=== PATIENT | male | born 1945 | race Hispanic/Latino ===

== ENCOUNTER 2023-10-09 09:49 | Outpatient (CLI) | payer MEDICARE | END 2023-10-09 09:50 | disposition home or self-care (01) | LOC: CSHWCC 09:49 | PROVIDERS: ATTEND Nurse Practitioner Family | DX: I83.013 Varicose veins of right lower extremity with ulcer of ankle (principal); I83.023 Varicose veins of left lower extremity with ulcer of ankle; E11.622 Type 2 diabetes mellitus with other skin ulcer; L97.329 Non-pressure chronic ulcer of left ankle with unspecified severity; L97.319 Non-pressure chronic ulcer of right ankle with unspecified severity; D45 Polycythemia vera | CPT/HCPCS: 11042 ==

== ENCOUNTER 2023-10-27 09:45 | Outpatient (CLI) | payer MEDICARE | END 2023-10-27 09:46 | disposition home or self-care (01) | LOC: CSHWCC 09:45 | PROVIDERS: ATTEND Family Medicine | DX: I83.013 Varicose veins of right lower extremity with ulcer of ankle (principal); I83.023 Varicose veins of left lower extremity with ulcer of ankle; E11.622 Type 2 diabetes mellitus with other skin ulcer; D45 Polycythemia vera; L97.322 Non-pressure chronic ulcer of left ankle with fat layer exposed; L97.312 Non-pressure chronic ulcer of right ankle with fat layer exposed | CPT/HCPCS: 97597 ==

== ENCOUNTER 2023-11-11 10:32 | Outpatient (CLI) | payer MEDICARE | END 2023-11-11 10:33 | disposition home or self-care (01) | LOC: CSHWCC 10:32 | PROVIDERS: ATTEND Nurse Practitioner Family | DX: I83.013 Varicose veins of right lower extremity with ulcer of ankle (principal); I83.023 Varicose veins of left lower extremity with ulcer of ankle; E11.622 Type 2 diabetes mellitus with other skin ulcer; D45 Polycythemia vera; L97.322 Non-pressure chronic ulcer of left ankle with fat layer exposed; L97.312 Non-pressure chronic ulcer of right ankle with fat layer exposed | CPT/HCPCS: 11042 ==

== ENCOUNTER 2023-11-25 12:49 | Outpatient (CLI) | payer MEDICARE | END 2023-11-25 12:50 | disposition home or self-care (01) | LOC: CSHWCC 12:49 | PROVIDERS: ATTEND Nurse Practitioner Family | DX: I83.013 Varicose veins of right lower extremity with ulcer of ankle (principal); I83.023 Varicose veins of left lower extremity with ulcer of ankle; E11.622 Type 2 diabetes mellitus with other skin ulcer; L97.322 Non-pressure chronic ulcer of left ankle with fat layer exposed; L97.312 Non-pressure chronic ulcer of right ankle with fat layer exposed; D45 Polycythemia vera | CPT/HCPCS: 11042 ==

== ENCOUNTER 2023-12-02 13:42 | Outpatient (CLI) | payer MEDICARE | END 2023-12-02 13:43 | disposition home or self-care (01) | LOC: CSHWCC 13:42 | PROVIDERS: ATTEND Nurse Practitioner Family | DX: I83.013 Varicose veins of right lower extremity with ulcer of ankle (principal); I83.023 Varicose veins of left lower extremity with ulcer of ankle; E11.622 Type 2 diabetes mellitus with other skin ulcer; L97.322 Non-pressure chronic ulcer of left ankle with fat layer exposed; L97.312 Non-pressure chronic ulcer of right ankle with fat layer exposed; D45 Polycythemia vera | CPT/HCPCS: 11042 ==

== ENCOUNTER 2023-12-10 12:03 | Outpatient (CLI) | payer MEDICARE | END 2023-12-10 12:04 | disposition home or self-care (01) | LOC: CSHWCC 12:03 | PROVIDERS: ATTEND Nurse Practitioner Family | DX: I83.013 Varicose veins of right lower extremity with ulcer of ankle (principal); I83.023 Varicose veins of left lower extremity with ulcer of ankle; E11.622 Type 2 diabetes mellitus with other skin ulcer; L97.322 Non-pressure chronic ulcer of left ankle with fat layer exposed; L97.312 Non-pressure chronic ulcer of right ankle with fat layer exposed; D45 Polycythemia vera | CPT/HCPCS: 11042 ==

== ENCOUNTER 2023-12-17 09:46 | Outpatient (CLI) | payer MEDICARE | END 2023-12-17 09:47 | disposition home or self-care (01) | LOC: CSHWCC 09:46 | PROVIDERS: ATTEND Nurse Practitioner Family | DX: I83.013 Varicose veins of right lower extremity with ulcer of ankle (principal); I83.023 Varicose veins of left lower extremity with ulcer of ankle; E11.622 Type 2 diabetes mellitus with other skin ulcer; L97.322 Non-pressure chronic ulcer of left ankle with fat layer exposed; L97.312 Non-pressure chronic ulcer of right ankle with fat layer exposed; D45 Polycythemia vera | CPT/HCPCS: 11042 ==

== ENCOUNTER 2023-12-24 12:25 | Outpatient (CLI) | payer MEDICARE | END 2023-12-24 12:26 | disposition home or self-care (01) | LOC: CSHWCC 12:25 | PROVIDERS: ATTEND Nurse Practitioner Family | DX: I83.013 Varicose veins of right lower extremity with ulcer of ankle (principal); I83.023 Varicose veins of left lower extremity with ulcer of ankle; E11.622 Type 2 diabetes mellitus with other skin ulcer; L97.322 Non-pressure chronic ulcer of left ankle with fat layer exposed; L97.312 Non-pressure chronic ulcer of right ankle with fat layer exposed; D45 Polycythemia vera | CPT/HCPCS: 11042 ==

== ENCOUNTER 2023-12-31 15:24 | Outpatient (CLI) | payer MEDICARE | END 2023-12-31 15:25 | disposition home or self-care (01) | LOC: CSHWCC 15:24 | PROVIDERS: ATTEND Nurse Practitioner Family | DX: I83.013 Varicose veins of right lower extremity with ulcer of ankle (principal); I83.023 Varicose veins of left lower extremity with ulcer of ankle; E11.622 Type 2 diabetes mellitus with other skin ulcer; D45 Polycythemia vera; L97.322 Non-pressure chronic ulcer of left ankle with fat layer exposed; L97.312 Non-pressure chronic ulcer of right ankle with fat layer exposed | CPT/HCPCS: 11042 ==

== ENCOUNTER 2024-01-06 08:42 | Outpatient (CLI) | payer MEDICARE | END 2024-01-06 08:43 | disposition home or self-care (01) | LOC: CSHWCC 08:42 | PROVIDERS: ATTEND Nurse Practitioner Family | DX: I83.013 Varicose veins of right lower extremity with ulcer of ankle (principal); I83.023 Varicose veins of left lower extremity with ulcer of ankle; E11.622 Type 2 diabetes mellitus with other skin ulcer; L97.312 Non-pressure chronic ulcer of right ankle with fat layer exposed; L97.322 Non-pressure chronic ulcer of left ankle with fat layer exposed; D45 Polycythemia vera | CPT/HCPCS: 11042 ==

== ENCOUNTER 2024-01-14 14:37 | Outpatient (CLI) | payer MEDICARE | END 2024-01-14 14:38 | disposition home or self-care (01) | LOC: CSHWCC 14:37 | PROVIDERS: ATTEND Nurse Practitioner Family | DX: I83.013 Varicose veins of right lower extremity with ulcer of ankle (principal); I83.023 Varicose veins of left lower extremity with ulcer of ankle; E11.622 Type 2 diabetes mellitus with other skin ulcer; D45 Polycythemia vera; L97.322 Non-pressure chronic ulcer of left ankle with fat layer exposed; L97.312 Non-pressure chronic ulcer of right ankle with fat layer exposed | CPT/HCPCS: 11042 ==

== ENCOUNTER 2024-01-21 15:48 | Outpatient (CLI) | payer MEDICARE | END 2024-01-21 15:49 | disposition home or self-care (01) | LOC: CSHWCC 15:48 | PROVIDERS: ATTEND Nurse Practitioner Family | DX: I83.013 Varicose veins of right lower extremity with ulcer of ankle (principal); I83.023 Varicose veins of left lower extremity with ulcer of ankle; E11.622 Type 2 diabetes mellitus with other skin ulcer; L97.322 Non-pressure chronic ulcer of left ankle with fat layer exposed; L97.312 Non-pressure chronic ulcer of right ankle with fat layer exposed; D45 Polycythemia vera | CPT/HCPCS: 11042 ==

== ENCOUNTER 2024-03-17 11:12 | Outpatient (CLI) | payer MEDICARE | END 2024-03-17 11:13 | disposition home or self-care (01) | LOC: CSHWCC 11:12 | PROVIDERS: ATTEND Nurse Practitioner Family | DX: I83.013 Varicose veins of right lower extremity with ulcer of ankle (principal); I83.023 Varicose veins of left lower extremity with ulcer of ankle; E11.622 Type 2 diabetes mellitus with other skin ulcer; L97.312 Non-pressure chronic ulcer of right ankle with fat layer exposed; D45 Polycythemia vera | CPT/HCPCS: 11042 ==

== ENCOUNTER 2024-03-24 10:54 | Outpatient (CLI) | payer MEDICARE | END 2024-03-24 10:55 | disposition home or self-care (01) | LOC: CSHWCC 10:54 | PROVIDERS: ATTEND Nurse Practitioner Family | DX: I83.013 Varicose veins of right lower extremity with ulcer of ankle (principal); I83.023 Varicose veins of left lower extremity with ulcer of ankle; E11.622 Type 2 diabetes mellitus with other skin ulcer; L97.312 Non-pressure chronic ulcer of right ankle with fat layer exposed; D45 Polycythemia vera | CPT/HCPCS: 97597 ==

== ENCOUNTER 2024-03-31 10:38 | Outpatient (CLI) | payer MEDICARE | END 2024-03-31 10:39 | disposition home or self-care (01) | LOC: CSHWCC 10:38 | PROVIDERS: ATTEND Nurse Practitioner Family | DX: E11.622 Type 2 diabetes mellitus with other skin ulcer (principal); L97.312 Non-pressure chronic ulcer of right ankle with fat layer exposed; I83.013 Varicose veins of right lower extremity with ulcer of ankle; I83.023 Varicose veins of left lower extremity with ulcer of ankle; L97.329 Non-pressure chronic ulcer of left ankle with unspecified severity; D45 Polycythemia vera | CPT/HCPCS: 97597 ==

== ENCOUNTER 2024-04-07 12:52 | Outpatient (CLI) | payer MEDICARE | END 2024-04-07 12:53 | disposition home or self-care (01) | LOC: CSHWCC 12:52 | PROVIDERS: ATTEND Nurse Practitioner Family | DX: E11.622 Type 2 diabetes mellitus with other skin ulcer (principal); L97.312 Non-pressure chronic ulcer of right ankle with fat layer exposed; I83.013 Varicose veins of right lower extremity with ulcer of ankle; I83.023 Varicose veins of left lower extremity with ulcer of ankle; D45 Polycythemia vera; L97.329 Non-pressure chronic ulcer of left ankle with unspecified severity | CPT/HCPCS: 97597 ==

== ENCOUNTER 2024-04-14 12:14 | Outpatient (CLI) | payer MEDICARE | END 2024-04-14 12:15 | disposition home or self-care (01) | LOC: CSHWCC 12:14 | PROVIDERS: ATTEND Nurse Practitioner Family | DX: E11.622 Type 2 diabetes mellitus with other skin ulcer (principal); L97.312 Non-pressure chronic ulcer of right ankle with fat layer exposed; I83.013 Varicose veins of right lower extremity with ulcer of ankle; I83.023 Varicose veins of left lower extremity with ulcer of ankle; D45 Polycythemia vera | CPT/HCPCS: 99212; G0463 ==

== ENCOUNTER 2024-04-28 11:31 | Outpatient (CLI) | payer MEDICARE | END 2024-04-28 11:32 | disposition home or self-care (01) | LOC: CSHWCC 11:31 | PROVIDERS: ATTEND Nurse Practitioner Family | DX: D45 Polycythemia vera (principal); Z87.2 Personal history of diseases of the skin and subcutaneous tissue | CPT/HCPCS: 99212; G0463 ==

== ENCOUNTER 2024-07-02 09:15 | Outpatient (CLI) | payer MEDICARE | END 2024-07-02 09:16 | disposition home or self-care (01) | LOC: CSHWCC 09:15 | PROVIDERS: ATTEND Nurse Practitioner Family | DX: L89.612 Pressure ulcer of right heel, stage 2 (principal); I83.013 Varicose veins of right lower extremity with ulcer of ankle; E11.622 Type 2 diabetes mellitus with other skin ulcer; L98.499 Non-pressure chronic ulcer of skin of other sites with unspecified severity; D45 Polycythemia vera | CPT/HCPCS: 97597; G0463; 99214 ==

== ENCOUNTER 2024-07-09 10:56 | Outpatient (CLI) | payer MEDICARE | END 2024-07-09 10:57 | disposition home or self-care (01) | LOC: CSHWCC 10:56 | PROVIDERS: ATTEND Nurse Practitioner Family | DX: E11.622 Type 2 diabetes mellitus with other skin ulcer (principal); L89.612 Pressure ulcer of right heel, stage 2; I83.013 Varicose veins of right lower extremity with ulcer of ankle; D45 Polycythemia vera | CPT/HCPCS: 11042 ==

== ENCOUNTER 2025-01-28 13:28 | Outpatient (CLI) | payer MEDICARE | END 2025-01-28 13:29 | disposition home or self-care (01) | LOC: CSHWCC 13:28 | PROVIDERS: ATTEND Nurse Practitioner Family | DX: I83.013 Varicose veins of right lower extremity with ulcer of ankle (principal); E11.622 Type 2 diabetes mellitus with other skin ulcer; L97.311 Non-pressure chronic ulcer of right ankle limited to breakdown of skin; D45 Polycythemia vera | CPT/HCPCS: 11042; 87070; 87077; 87186; 87205; G0463; 99212 ==

== ENCOUNTER 2025-02-01 11:58 | Outpatient (CLI) | payer MEDICARE | END 2025-02-01 11:59 | disposition home or self-care (01) | LOC: CSHWCC 11:58 | PROVIDERS: ATTEND Nurse Practitioner Family | DX: E11.622 Type 2 diabetes mellitus with other skin ulcer (principal); I83.013 Varicose veins of right lower extremity with ulcer of ankle; L97.311 Non-pressure chronic ulcer of right ankle limited to breakdown of skin; D45 Polycythemia vera | CPT/HCPCS: 11042; G0463; 99213 ==

== ENCOUNTER 2025-02-08 10:44 | Outpatient (CLI) | payer MEDICARE | END 2025-02-08 10:45 | disposition home or self-care (01) | LOC: CSHWCC 10:44 | PROVIDERS: ATTEND Nurse Practitioner Family | DX: I83.013 Varicose veins of right lower extremity with ulcer of ankle (principal); E11.622 Type 2 diabetes mellitus with other skin ulcer; L97.311 Non-pressure chronic ulcer of right ankle limited to breakdown of skin; D45 Polycythemia vera; L08.9 Local infection of the skin and subcutaneous tissue, unspecified | CPT/HCPCS: 11042; 99213; G0463 ==

== ENCOUNTER 2025-02-15 11:31 | Outpatient (CLI) | payer MEDICARE | END 2025-02-15 11:32 | disposition home or self-care (01) | LOC: CSHWCC 11:31 | PROVIDERS: ATTEND Nurse Practitioner Family | DX: I83.013 Varicose veins of right lower extremity with ulcer of ankle (principal); E11.622 Type 2 diabetes mellitus with other skin ulcer; L97.311 Non-pressure chronic ulcer of right ankle limited to breakdown of skin; D45 Polycythemia vera; L08.9 Local infection of the skin and subcutaneous tissue, unspecified ==

== ENCOUNTER 2025-02-23 09:38 | Outpatient (CLI) | payer MEDICARE | END 2025-02-23 09:39 | disposition home or self-care (01) | LOC: CSHWCC 09:38 | PROVIDERS: ATTEND Nurse Practitioner Family | DX: I83.013 Varicose veins of right lower extremity with ulcer of ankle (principal); E11.622 Type 2 diabetes mellitus with other skin ulcer; L97.311 Non-pressure chronic ulcer of right ankle limited to breakdown of skin; D45 Polycythemia vera; L08.9 Local infection of the skin and subcutaneous tissue, unspecified | CPT/HCPCS: 11042; G0463; 99212 ==

== ENCOUNTER 2025-03-02 10:21 | Outpatient (CLI) | payer MEDICARE | END 2025-03-02 10:22 | disposition home or self-care (01) | LOC: CSHWCC 10:21 | PROVIDERS: ATTEND Nurse Practitioner Family | DX: S90.821D Blister (nonthermal), right foot, subsequent encounter (principal); E11.622 Type 2 diabetes mellitus with other skin ulcer; I83.013 Varicose veins of right lower extremity with ulcer of ankle; L97.311 Non-pressure chronic ulcer of right ankle limited to breakdown of skin; D45 Polycythemia vera | CPT/HCPCS: 11042 ==

== ENCOUNTER 2025-03-09 10:28 | Outpatient (CLI) | payer MEDICARE | END 2025-03-09 10:29 | disposition home or self-care (01) | LOC: CSHWCC 10:28 | PROVIDERS: ATTEND Nurse Practitioner Family | DX: S90.821D Blister (nonthermal), right foot, subsequent encounter (principal); E11.622 Type 2 diabetes mellitus with other skin ulcer; I83.013 Varicose veins of right lower extremity with ulcer of ankle; L97.311 Non-pressure chronic ulcer of right ankle limited to breakdown of skin; D45 Polycythemia vera | CPT/HCPCS: 11042 ==

== ENCOUNTER 2025-03-18 10:26 | Outpatient (CLI) | payer MEDICARE | END 2025-03-18 10:27 | disposition home or self-care (01) | LOC: CSHWCC 10:26 | PROVIDERS: ATTEND Nurse Practitioner Family | DX: E11.622 Type 2 diabetes mellitus with other skin ulcer (principal); I83.013 Varicose veins of right lower extremity with ulcer of ankle; L97.311 Non-pressure chronic ulcer of right ankle limited to breakdown of skin; D45 Polycythemia vera | CPT/HCPCS: 29581 ==

== ENCOUNTER 2025-04-05 10:35 | Outpatient (CLI) | payer MEDICARE | END 2025-04-05 10:36 | disposition home or self-care (01) | LOC: CSHWCC 10:35 | PROVIDERS: ATTEND Nurse Practitioner Family | DX: E11.622 Type 2 diabetes mellitus with other skin ulcer (principal); I83.013 Varicose veins of right lower extremity with ulcer of ankle; L97.311 Non-pressure chronic ulcer of right ankle limited to breakdown of skin; D45 Polycythemia vera | CPT/HCPCS: 11042 ==

== ENCOUNTER 2025-04-26 11:27 | Outpatient (CLI) | payer MEDICARE | END 2025-04-26 11:28 | disposition home or self-care (01) | LOC: CSHWCC 11:27 | PROVIDERS: ATTEND Nurse Practitioner Family | DX: E11.622 Type 2 diabetes mellitus with other skin ulcer (principal); L97.311 Non-pressure chronic ulcer of right ankle limited to breakdown of skin; I83.013 Varicose veins of right lower extremity with ulcer of ankle; D45 Polycythemia vera | CPT/HCPCS: 11042 ==

== ENCOUNTER 2025-05-03 10:23 | Outpatient (CLI) | payer MEDICARE | END 2025-05-03 10:24 | disposition home or self-care (01) | LOC: CSHWCC 10:23 | PROVIDERS: ATTEND Nurse Practitioner Family | DX: E11.622 Type 2 diabetes mellitus with other skin ulcer (principal); L97.311 Non-pressure chronic ulcer of right ankle limited to breakdown of skin; I83.013 Varicose veins of right lower extremity with ulcer of ankle; D45 Polycythemia vera | CPT/HCPCS: 11042 ==

== ENCOUNTER 2025-05-10 11:05 | Outpatient (CLI) | payer MEDICARE | END 2025-05-10 11:06 | disposition home or self-care (01) | LOC: CSHWCC 11:05 | PROVIDERS: ATTEND Nurse Practitioner Family | DX: E11.622 Type 2 diabetes mellitus with other skin ulcer (principal); L97.311 Non-pressure chronic ulcer of right ankle limited to breakdown of skin; I83.013 Varicose veins of right lower extremity with ulcer of ankle; D45 Polycythemia vera | CPT/HCPCS: 11042 ==

== ENCOUNTER 2025-05-17 10:32 | Outpatient (CLI) | payer MEDICARE | END 2025-05-17 10:33 | disposition home or self-care (01) | LOC: CSHWCC 10:32 | PROVIDERS: ATTEND Nurse Practitioner Family | DX: I83.013 Varicose veins of right lower extremity with ulcer of ankle (principal); E11.622 Type 2 diabetes mellitus with other skin ulcer; L97.311 Non-pressure chronic ulcer of right ankle limited to breakdown of skin; D45 Polycythemia vera | CPT/HCPCS: 11042 ==

== ENCOUNTER 2025-05-31 10:17 | Outpatient (CLI) | payer MEDICARE | END 2025-05-31 10:18 | disposition home or self-care (01) | LOC: CSHWCC 10:17 | PROVIDERS: ATTEND Nurse Practitioner Family | DX: L89.513 Pressure ulcer of right ankle, stage 3 (principal); E11.622 Type 2 diabetes mellitus with other skin ulcer; L97.311 Non-pressure chronic ulcer of right ankle limited to breakdown of skin; I83.013 Varicose veins of right lower extremity with ulcer of ankle; D45 Polycythemia vera | CPT/HCPCS: 11042; 99214; G0463 ==

== ENCOUNTER 2025-06-07 10:31 | Outpatient (CLI) | payer MEDICARE | END 2025-06-07 10:32 | disposition home or self-care (01) | LOC: CSHWCC 10:31 | PROVIDERS: ATTEND Nurse Practitioner Family | DX: L89.513 Pressure ulcer of right ankle, stage 3 (principal); E11.622 Type 2 diabetes mellitus with other skin ulcer; L97.311 Non-pressure chronic ulcer of right ankle limited to breakdown of skin; I83.013 Varicose veins of right lower extremity with ulcer of ankle; D45 Polycythemia vera ==

== ENCOUNTER 2025-06-14 10:59 | Outpatient (CLI) | payer MEDICARE | END 2025-06-14 11:00 | disposition home or self-care (01) | LOC: CSHWCC 10:59 | PROVIDERS: ATTEND Nurse Practitioner Family | DX: L89.513 Pressure ulcer of right ankle, stage 3 (principal); I83.013 Varicose veins of right lower extremity with ulcer of ankle; E11.622 Type 2 diabetes mellitus with other skin ulcer; L97.311 Non-pressure chronic ulcer of right ankle limited to breakdown of skin; D45 Polycythemia vera | CPT/HCPCS: 11042 ==